=== PATIENT | male | born 1955 | race Caucasian/White ===

== ENCOUNTER 2017-06-24 11:21 | Emergency (ER) | payer BC ==
[~2017-06-24] VITALS: Ht 177.8 cm; Wt 113.4 kg
[2017-06-24 12:29] LABS: PLATELET COUNT 138 x10^3mcL (130-400)
[2017-06-24 12:40] LABS: RED CELL DISTRIBUTION WIDTH 20.1 % (11.5-14.5)
[2017-06-24 13:10] LABS: BAND NEUTROPHIL 14 % (0-10); BASOPHIL 0 % (0-2); MONOCYTE 3 % (0-7); PLATELET MORPHOLOGY PLATELETS NORMAL; SEGMENTED NEUTROPHILS 80 % (37-75); rbc morphology (normal/abnorm) ABNORMAL (NORMAL)
[2017-06-24 13:27] VITALS: BP 147/74
[2017-06-24 13:55] VITALS: BP 120/63
[2017-06-24 14:30] LABS: BILIRUBIN TOTAL 0.8 mg/dL (0.20-1.00); CALCIUM 10.2 mg/dL (8.5-10.1)
[2017-06-24 14:38] LABS: ALBUMIN 2.4 g/dL (3.4-5.0); CREATININE SERUM 7.9 mg/dL (0.7-1.3)
== END 2017-06-24 14:36 | disposition short-term general hospital (02) ==
LOC: ED 11:21
PROVIDERS: Emergency Medicine
DX: S06.5X0A Traumatic subdural hemorrhage without loss of consciousness, initial encounter (principal); I48.91 Unspecified atrial fibrillation; D72.825 Bandemia; W18.30XA Fall on same level, unspecified, initial encounter; Y93.89 Activity, other specified; Y99.8 Other external cause status; Y92.59 Other trade areas as the place of occurrence of the external cause
CPT/HCPCS: 36600; 82962; 83880; 87804; J0696; J2150; J3490; J7040; Q0092